=== PATIENT | male | born 1960 | race Caucasian/White ===

== ENCOUNTER 2017-08-01 06:21 | Day surgery (SDC) | payer BC ==
[2017-07-30 16:49] VITALS: BMI 34.2
[~2017-08-01 06:21] MED LIST: Cyclopentolate 1% Opth Drop 2 ML BOT FS SCH; Fluorouracil 100 MG, Enoxaparin Sodium 25 MG, EPINEPHrine 0.3 MG in Ophthalmic Irrigati... IVPB SCH; Phenylephrine 2.5% Ophth Soln 5 ML BOT FS SCH
[2017-08-01] MEDS ORDERED: Cyclopentolate 1% Opth Drop 2 ML BOT ONE (06:43)
[2017-08-01] MEDS ORDERED: Phenylephrine 2.5% Ophth Soln 5 ML BOT ONE (06:43)
[2017-08-01] MEDS ORDERED: Midazolam HCl 2 mg/2 ml Vial ONE (07:45)
[2017-08-01] MEDS ORDERED: Diprivan 20 ML ONE (07:45)
[2017-08-01] MEDS ORDERED: Fentanyl 100 MCG/2 ML VIAL ONE (07:45)
--- NOTE | 2017-08-01 10:46 | OP ---
DATE OF PROCEDURE: 08/01/2017 PREOPERATIVE DIAGNOSIS: Rhegmatogenous retinal detachment, right eye. POSTOPERATIVE DIAGNOSIS: Rhegmatogenous retinal detachment, right eye. PROCEDURE: Pars plana vitrectomy and retinal detachment repair, right eye. SURGEON: Dr. Beto Torres ANESTHESIA: Local with monitored anesthesia care. COMPLICATIONS: None. PROCEDURE IN DETAIL: The patient was identified in the preoperative holding area. Appropriate infor med consent for the planned surgical procedure on the right eye had been obtained. The patient was t ransported to the operative suite where appropriate cardiopulmonary monitoring was established. Loca l anesthesia was obtained using retrobulbar and modified Van Lint lid block using 50/50 mixture of 4% lidocaine and 0.75% bupivacaine. The patient was prepped and draped in the usual sterile manner for ophthalmic surgery on the right eye. Lid speculum was placed in the right eye. The 25-gauge trocar s were placed in conjunctiva and sclera supratemporally, inferotemporally, and supranasally. Infusio n line was placed inferotemporally. Light pipe and vitreous cutter were inserted into the eye. Core of vitrectomy was performed. Tears were noted at the 10 and 12 o'clock positions. Posterior drain retinotomy was created. Complete air fluid exchange was performed. A 360 laser was placed using end olaser delivery device. 28% percent hexafluoride gas was infused into the eye. Trocars were removed . Superior sclerotomies were sutured closed. Retrobulbar Kenalog and subconjunctival Ancef were lesly binh. Atropine and antibiotic ointment were placed, and the eye was patched and shielded. The patien t was taken to the postoperative recovery unit in good condition, suffered no immediate perioperative complications. DISCHARGE INSTRUCTIONS: The patient was instructed to keep patch and shield on, avoid lifting or soumya ding, and follow up in the morning with Dr. Torres.
== END 2017-08-01 09:49 | disposition home or self-care (01) ==
LOC: SDC 06:21
PROVIDERS: ATTEND Ophthalmology Retina Specialist
PROC: 08B43ZZ Excision of Right Vitreous, Percutaneous Approach (ICD-10-PCS; principal; 2017-08-01)
DX: H33.021 Retinal detachment with multiple breaks, right eye (principal); Z85.820 Personal history of malignant melanoma of skin; Z90.89 Acquired absence of other organs; Z98.890 Other specified postprocedural states
CPT/HCPCS: 67025; J0171; J1650; J2250; J2704; J3010; J9190

== ENCOUNTER 2023-06-10 10:13 | Outpatient (CLI) | payer BC | END 2023-06-10 10:14 | disposition home or self-care (01) | LOC: BICMRI 10:13 | PROVIDERS: ATTEND Orthopaedic Surgery | DX: M23.91 Unspecified internal derangement of right knee (principal); M25.461 Effusion, right knee; S83.241A Other tear of medial meniscus, current injury, right knee, initial encounter; M67.853 Other specified disorders of tendon, right hip; M84.451A Pathological fracture, right femur, initial encounter for fracture ==